=== PATIENT | male | born 1990 | race Caucasian/White ===

== ENCOUNTER 2017-08-29 17:59 | Emergency (ER) | payer BC ==
[~2017-08-29] VITALS: Ht 193 cm; Wt 135.0 kg
[~2017-08-29 17:59] MED LIST: ACYC-1 PO; PROP10TA6 PO
[2017-08-29 18:02] VITALS: BP 153/89; PULSE 73; RESP 20; TEMP 98.1; O2SAT 96
[2017-08-29] MEDS ORDERED: VENL37.5 PO (18:12)
[2017-08-29] MEDS ORDERED: PROPOFOL 200 MG/20 ML AMP IV ONE (18:30)
[2017-08-29] MEDS ORDERED: MORPHINE SULFATE 8 MG/ML INJ IV PUSH ONE (18:30)
--- NOTE | 2017-08-29 18:42 | PD ---
HPI Chief Complaint: Musculoskeletal Complaint Time Seen by Provider: 18:24 Travel History International Travel<30 days: No Contact w/Intl Traveler<30days: No Traveled to known affect area: No History of Present Illness HPI This is a 27-year-old male who presents to the emergency department having been sleeping in bed when he rolled over and felt his shoulder dislocate with severe pain in his shoulder, constant, with no numbness or weakness. This is happened to him before and he is required shoulder reductions twice. He is supposed to get surgery. [facility] Past Medical History Medical History: Denies Significant Hx Diminished Hearing: No Immunizations Current: Yes Tetanus Vaccination: < 5 Years Influenza Vaccination: Yes ?: Not Past Surgical History Other Surgery: Yes (right ankle plate) Social History Alcohol Use: No Tobacco Use: No Substance Use: No Allergies-Medications (Allergen,Severity, Reaction): Coded Allergies: No Known Allergies (Unverified Adverse Reaction, Unknown, 08/29/17) Reported Meds & Prescriptions Reported Meds & Active Scripts Active Reported Effexor (Venlafaxine HCl) 37.5 Mg Tab 37.5 Mg PO DAILY Review of Systems Except as stated in HPI: all other systems reviewed are Neg Physical Exam Narrative GENERAL:Well appearing, no acute distress SKIN: Focused skin assessment warm and dry. HEAD: Atraumatic. Normocephalic. EYES: Pupils equal and round. No injection or drainage. ENT: Moist mucous membranes NECK: Trachea midline. CARDIOVASCULAR: Regular rate and rhythm. No murmur appreciated. 2+ left radial pulse with normal capillary refill. RESPIRATORY: Clear to auscultation. Breath sounds equal bilaterally. GASTROINTESTINAL: Abdomen soft, non-tender, nondistended. MUSCULOSKELETAL: Holding his left arm above head NEUROLOGICAL: Awake and alert. No obvious cranial nerve deficits. Moving all extremities. PSYCHIATRIC: Appropriate mood and affect; insight and judgment normal. Data Data Last Documented VS Vital Signs Date Time Temp Pulse Resp B/P (MAP) Pulse Ox O2 Delivery O2 Flow Rate FiO2 08/29/17 19:51 82 17 179/80 (113) 96 Room Air 08/29/17 18:02 98.1 Orders Orders Morphine Inj (Morphine Inj) (08/29/17 18:30) Shoulder, Limited(2vws) (08/29/17 ) ^ Insert Iv (08/29/17 18:27) Propofol 200 Mg/20 Ml Inj (Diprivan 200 (08/29/17 18:30) Shoulder, Limited(2vws) (08/29/17 ) [facility] Medical Decision Making Medical Screen Exam Complete: Yes Emergency Medical Condition: Yes Interpretation(s) Afebrile, no tachycardia, mild hypertension Last 24 hours Impressions Shoulder X-Ray 08/29/17 0000 Signed Impressions: CONCLUSION: Anterior dislocation of the glenohumeral joint. No evidence of acute fracture. Differential Diagnosis Shoulder dislocation, neurovascular injury, shoulder sprain Narrative Course This is a 27-year-old male who presents to the emergency department with a left anterior shoulder dislocation. He has a normal neurovascular exam. He was placed on a monitor and an IV was established. Patient was sedated and his shoulder was easily reduced. Patient tolerated the procedure well. Normal neurovascular exam following the procedure. He will be discharged to follow-up with orthopedics. Procedures Procedure Narrative Shoulder reduction: Left shoulder was reduced using traction. Patient tolerated the procedure well and had a normal neurovascular exam following procedure. X-ray confirms reduction. After the risks and benefits were discussed the following procedure was performed: MODERATE SEDATION: The patient was placed on a cardiac sonographer and pulse oximetry. An ambu bag and suction was immediately available at bedside. The patient was monitored by the nurse. Oxygen saturation, heart rate and blood pressure were monitored. Procedural sedation was acheived using 100 mg of propofol. The patient was observed until awake and alert. Procedural Sedation time in attendance was 20 minutes. Diagnosis Primary Impression: Dislocation of left shoulder joint Qualified Codes: S43.005A - Unspecified dislocation of left shoulder joint, initial encounter Patient Instructions: General Instructions Additional Instructions: Follow-up with an orthopedist as soon as possible and keep your arm in a sling until then. If you develop numbness, weakness or severe pain return to the emergency room. Med/Other Pt SpecificInfo: No Change to Meds Disposition: 01 DISCHARGE HOME Condition: Stable Bharti George MD August 29, 2017 18:42
--- NOTE | 2017-08-29 18:51 | RADRPT ---
EXAM DATE: 08/29/2017 6:43 PM EDT AGE/SEX: 27 years / Male INDICATIONS: Dislocation left shoulder in bed today CLINICAL DATA: This is the patient's initial encounter. Patient reports that signs and symptoms have been present for 1 day and indicates a pain score of 8/10. MEDICAL/SURGICAL HISTORY: . Multiple left shoulder dislocations None. COMPARISON: No prior [facility] exams available for comparison. FINDINGS: The humeral head is located anterior to the glenoid fossa. There is no evidence of fracture Acromioclavicular joint is intact. CONCLUSION: Anterior dislocation of the glenohumeral joint. No evidence of acute fracture. Electronically signed by: Deondre Vee MD 08/29/2017 6:50 PM EDT
[2017-08-29 19:20] VITALS: O2SAT 100
[2017-08-29 19:51] VITALS: BP 179/80; PULSE 82; RESP 17; O2SAT 96
--- NOTE | 2017-08-29 20:09 | RADRPT ---
EXAM DATE: 08/29/2017 7:45 PM EDT AGE/SEX: 27 years / Male INDICATIONS: Dislocation, post reduction. CLINICAL DATA: This is the patient's initial encounter. Patient reports that signs and symptoms have been present for 1 day and indicates a pain score of 4/10. MEDICAL/SURGICAL HISTORY: None. None. COMPARISON: [facility], SHOULDER LEFT LTD (2VWS), 08/29/2017. . FINDINGS: Post reduction films demonstrates realignment of the humeral head within the glenoid fossa. There is no evidence of acute fracture. CONCLUSION: Satisfactory reduction of anterior dislocation with anatomic alignment of the glenohumeral joint. Electronically signed by: Deondre Vee MD 08/29/2017 8:08 PM EDT
[2017-08-29 20:21] VITALS: BP 173/88
== END 2017-08-29 20:24 | disposition home or self-care (01) ==
LOC: PHED 17:59
DX: S43.015A Anterior dislocation of left humerus, initial encounter (principal); X58.XXXA Exposure to other specified factors, initial encounter
CPT/HCPCS: 23650; 73030; 99152